=== PATIENT | female | born 1980 | race Caucasian/White ===

== ENCOUNTER 2020-02-27 19:41 | Emergency (ER) | payer SELFPAY ==
[~2020-02-27] VITALS: Ht 170.2 cm; Wt 78.7 kg
--- NOTE | 2020-02-27 20:23 | NUR ---
PT TO ROOM 12 PER PEDIS. PT C/O MIGRAINE THAT STARTED AROUND 11AM. PT USUALLY TAKES IBUPROFEN FOR MIGRAINE PAIN,, BUT DUE TO COVID AND IBUPROFEN, PATIENT DID NOT TAKE ANYTHING UNTIL 1 1/2 HOURS AGO, AND IT WAS ASA, THAT HAS NOT WORKED. PT HAS NAUSEA AND IS PHOTOPHOBIC. PT C/O PAIN IN HER OCCIPTAL REGION THAT WRAPS AROUND HER HEAD AND THROBS. LIGHTS DIMMED. PA IN TO ASSESS PATIENT. ORDERS RECEIVED.
[2020-02-27] MEDS ORDERED: DIPHENHYDRAMINE 50 MG/ML, 1ML IVPush ONE (20:30)
[2020-02-27] MEDS ORDERED: SODIUM CHLORIDE 0.9% 1,000ML IVBOLUS ONE (20:30)
[2020-02-27] MEDS ORDERED: PROCHLORPERAZINE 5 MG/ML, 2ML IVPush ONE (20:30)
[2020-02-27] MEDS ORDERED: PROCHLORPERAZINE 5 MG/ML, 2ML ONE (20:40)
[2020-02-27] MEDS ORDERED: DIPHENHYDRAMINE 50 MG/ML, 1ML ONE (20:41)
--- NOTE | 2020-02-27 20:55 | NUR ---
IV PLACED X1 ATTEMPT AND IV FLUIDS STARTED. IV MEDICATIONS GIVEN FOR MIGRAINE. LIGHTS DIMMED AND PATIENT GIVEN WARM BLANKETS. MD IN TO ASSESS PATIENT. WILL CONTINUE TO MONITOR PATIENT.
[2020-02-27 21:17] VITALS: BP 114/82
--- NOTE | 2020-02-27 21:19 | NUR ---
DISCHARGE INSTRUCTIONS GIVEN TO PATIENT. PT VERBALIZES UNDERSTANDING OF ALL INSTRUCTIONS AND FOLLOW UP. PT AMBULATED OUT OF ED PER PEDIS, AND HAS CALLED HER FOR A RIDE HOME.
== END 2020-02-27 23:41 | disposition home or self-care (01) ==
LOC: ED 21:10
DX: G44.219 Episodic tension-type headache, not intractable (principal)
CPT/HCPCS: 96374; 96375; 99284; J0780; J1200; J7030